=== PATIENT | female | born 1970 | race Two or more races ===

== ENCOUNTER 2025-05-23 09:20 | Emergency (ER) | payer MEDICAID ==
[~2025-05-23] VITALS: Ht 142.2 cm; Wt 48.0 kg
[~2025-05-23 09:20] MED LIST: METF-1157 PO
[2025-05-23 09:35] VITALS: TEMP 98
[2025-05-23 10:03] VITALS: BP 133/88; PULSE 71; RESP 18; O2SAT 98
[2025-05-23] MEDS ORDERED: METF-438 PO (10:15)
--- NOTE | 2025-05-23 10:15 | Physician Documentation ---
History of Present Illness ~ Chief Complaint: Hyperglycemia Stated Complaint: LOW BLOOD SUGAR Time Seen by MD: 09:44 Primary Medical Doctor: NONE Mode of Arrival: POV HPI This is a 54-year-old female who was recently diagnosed with type 2 diabetes who presents with concern for continued elevated blood sugars and occasional feeling of prickly pain all over her body. Patient reports that she has not been able to follow up with the primary care provider yet in his taking oral medications for her type 2 diabetes. Patient reports no other acute symptoms or concerns including no cough, shortness of breath, fever, abdominal pain, nausea, or vomiting. Patient is [place]ian-speaking, history and physical conducted with the assistance of bilingual audio visual aids director Reconciliation Allergies: Coded Allergies: No Known Allergies (Unverified , 05/02/25) Scheduled Metformin HCl (Metformin HCl), 1 TAB PO Q12H Discontinued Medications Metformin Hcl* (Glucophage*), 1 TAB PO Q12H Past Medical History Past Medical History: Diabetes Patient History: FHx: diabetes mellitus CHILD, Onset:10 - 15 Review of Systems ROS As stated above in the HPI, otherwise all systems are reviewed and negative. Physical Exam Vital Signs: Temperature: 98.0, Source: Oral, Heart Rate: 71, Respiratory Rate: 18, BP: 133/88, Pulse Oximetry: 98, Weight: 48.000 Oxygen Flow Rate: 0 Physical Exam VITALS: Reviewed and as above. GENERAL: Alert, nontoxic appearing, no apparent distress. RESPIRATORY: No increased work of breathing, no respiratory distress, speaking in full clear sentences Progress Results/Orders Results/Orders Vital Signs 05/23/25 05/23/25 05/23/25 09:35 10:03 10:03 Temp 98.0 Pulse 71 71 Resp 18 18 18 B/P (MAP) 138/84 133/88 (103) Pulse Ox 100 98 O2 Flow Rate 0 Laboratory Tests Test 05/23/25 09:39 Glucometer 219 H Medical Decision Making Findings This is a 54-year-old female who was recently diagnosed with type 2 diabetes, patient presents due to concern for poorly controlled blood sugars, as patient's blood sugars has been running around 200 I will increase her metformin dose until she can get into her primary care provider for further management of her type 2 diabetes. Patient is otherwise well with a benign physical exam. Krystian delong provided home care instructions, return to care instructions, and follow up instructions by bilingual RN. Differential Dx:Considerations: Include: DKA, Gastritis, Hyperosmolar state, Hypoglycemia, UTI Departure Time of Disposition: 10:15 Disposition: 01 HOME / SELF CARE / HOMELESS Impression: Primary Impression: Diabetes mellitus Qualified Codes: E11.65 - Type 2 diabetes mellitus with hyperglycemia Condition: Improved Discharge Instructions: Hyperglycemia, [id number] Additional Instructions: Please continue following diabetic diet. I have increased your dose of metformin. Please follow up with a primary care provider in the next few days, consider contacting the [facility]. Please return to the emergency department for any new or worsening concerning symptoms. Referrals: NO PRIMARY CARE PROVIDER (PCP) Prescriptions Metformin HCl (Metformin HCl) 1,000 Mg Tablet 1 TAB PO Q12H for 30 Days, #60 TAB 1 Refill Prov: ABEL KIMBROUGH 05/23/25 Education Educated: Patient Educated regarding: diagnosis, treatment, prognosis, need for follow up Signature Scribe Signature: No scribe Attestation: The note accurately reflects work and decisions made by me.PEEWEE Lezama 05/23/25 21:10 ABEL KIMBROUGH May 23, 2025 10:15
== END 2025-05-23 10:46 | disposition home or self-care (01) ==
LOC: ER 09:21
DX: E11.649 Type 2 diabetes mellitus with hypoglycemia without coma (principal); E11.65 Type 2 diabetes mellitus with hyperglycemia
CPT/HCPCS: 82948; 99283

== ENCOUNTER 2025-07-17 12:34 | Emergency (ER) | payer MEDICAID ==
[~2025-07-17] VITALS: Ht 149.9 cm; Wt 47.6 kg
[~2025-07-17 12:34] MED LIST changes: +HYDR-3973 PO; -METF-1157 PO; +METF-438 PO
[2025-07-17 12:35] VITALS: BP 135/95; PULSE 88; TEMP 97.7; O2SAT 97
[2025-07-17 16:27] VITALS: RESP 16
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
[2025-07-17] MEDS ORDERED: LIDO-52 TD (16:53)
== END 2025-07-17 17:36 | disposition home or self-care (01) ==
LOC: ER 12:35
DX: M25.512 Pain in left shoulder (principal); M79.5 Residual foreign body in soft tissue; E11.9 Type 2 diabetes mellitus without complications; Z79.899 Other long term (current) drug therapy; Z79.84 Long term (current) use of oral hypoglycemic drugs
CPT/HCPCS: 99283